=== PATIENT | female | born 2005 | race Caucasian/White ===

== ENCOUNTER 2024-04-11 13:25 | Emergency (ER) | payer MEDICAID ==
[~2024-04-11] VITALS: Ht 157.5 cm; Wt 51.8 kg
[2024-04-11 13:33] VITALS: BP 108/63; PULSE 68; RESP 18; TEMP 98.2; O2SAT 100
== END 2024-04-11 19:17 | disposition left against medical advice (07) ==
LOC: EMS 13:25
DX: R06.02 Shortness of breath (principal); R07.81 Pleurodynia; Z53.21 Procedure and treatment not carried out due to patient leaving prior to being seen by health care provider
CPT/HCPCS: 71045